=== PATIENT | female | born 1955 | race African-American/Black ===

== ENCOUNTER 2018-02-22 11:58 | Inpatient (IN) | payer MEDICARE, MEDICAID ==
[~2018-02-22] VITALS: Ht 304.8 cm; Wt 80.4 kg
[2018-02-22] MEDS ORDERED: KETOROLAC 30MG/ML VIAL IV STA (12:36)
[2018-02-22] MEDS ORDERED: SODIUM CHLORIDE 0.9% 1,000 ML IV ONE (12:36)
[2018-02-22 14:12] LABS: MEAN CORPUSCULAR HEMOGLOBIN 24.4 pg (28.0-32.0); MEAN CORPUSCULAR VOLUME 73.7 fL (81.0-99.0); PLATELET 98 x1000/uL (130-400); RED BLOOD CELL COUNT 2.84 mill/uL (4.2-5.4); RED CELL DISTRIBUTION WIDTH 20.7 % (11.6-14.6)
[2018-02-22 14:17] LABS: CHLORIDE 108 mEq/L (98-107); HEMOGLOBIN. 6.9 g/dL (12.0-16.0)
[2018-02-22 14:18] LABS: HEMATOCRIT. 20.9 % (36.0-48.0)
[2018-02-22 14:20] LABS: INR 1.2; PROTHROMBIN TIME 11.6 sec (9.1-11.1)
[2018-02-22 14:51] LABS: PLATELET ESTIMATE DECREASED
[2018-02-22] MEDS ORDERED: IBUP-2029 PO (17:33)
[2018-02-22] MEDS ORDERED: HYDR-4001 MT (17:33)
[2018-02-22] MEDS ORDERED: FOLI-43 MT (17:33)
[2018-02-22 18:00] VITALS: BP_SYST 133; BP_DIAS 61; BP_DIAS 66
[2018-02-22] MEDS ORDERED: TEMAZEPAM 15MG CAPSULE PO PRN (19:30)
[2018-02-22] MEDS ORDERED: ONDANSETRON HCL 4MG/2ML INJ IV PRN (19:30)
[2018-02-22] MEDS ORDERED: DOCUSATE SODIUM 100MG CAPSULE PO PRN (19:30)
[2018-02-22] MEDS ORDERED: IPRATROPIUM/ALBUTEROL 0.5-3(2.5)MG/3ML NEB INH PRN (19:30)
[2018-02-22 20:00] VITALS: BP 136/67
[2018-02-22] MEDS: SODIUM CHLORIDE 0.9% 1,000 ML IV SCH (20:23)
[2018-02-22] MEDS: HYDROMORPHONE HCL/PF 2MG/ML CPJ IV PRN (20:23)
[2018-02-22] MEDS: PIPERACILLIN/TAZ 3.375G PREMIX 50 ML IV SCH (22:29)
[2018-02-23] VITALS: BP 127/71
[2018-02-23 04:00] VITALS: BP 140/78
[2018-02-23] MEDS: HYDROMORPHONE HCL/PF 2MG/ML CPJ IV PRN ×3 (04:39→17:13)
[2018-02-23] MEDS: SODIUM CHLORIDE 0.9% 1,000 ML IV SCH ×3 (04:45→17:34)
[2018-02-23] MEDS: PIPERACILLIN/TAZ 3.375G PREMIX 50 ML IV SCH ×3 (06:04→21:12)
[2018-02-23 07:01] LABS: BASOPHILS % 0.2 % (0.0-2.0); EOSINOPHILS % 0.1 % (0.0-5.0); LYMPHOCYTES % 17.3 % (20.0-50.0); MEAN CORPUSCULAR HEMOGLOBIN 24.1 pg (28.0-32.0); MEAN CORPUSCULAR VOLUME 73.4 fL (81.0-99.0); MONOCYTES % 3.4 % (2.0-8.0); RED BLOOD CELL COUNT 2.65 mill/uL (4.2-5.4); RED CELL DISTRIBUTION WIDTH 19.6 % (11.6-14.6)
[2018-02-23 07:08] LABS: CHLORIDE 112 mEq/L (98-107)
[2018-02-23 07:54] LABS: HEMOGLOBIN. 6.4 g/dL (12.0-16.0)
[2018-02-23 07:55] LABS: HEMATOCRIT. 19.5 % (36.0-48.0)
[2018-02-23 08:00] VITALS: BP 109/57
[2018-02-23] MEDS: FOLIC ACID 1MG TABLET PO SCH (09:04)
[2018-02-23 10:40] LABS: MEAN PLATELET VOLUME 9.7 fl (7.4-10.4); PLATELET 73 x1000/uL (130-400)
[2018-02-23 12:00] VITALS: BP 108/56
[2018-02-23 16:00] VITALS: BP 106/53
[2018-02-23 16:29] LABS: BG BASE EXCESS 0.5 mmol/L (-2.0-2.0); BG CARBOXYHEMOGLOBIN 2.2 % (0.5-1.5); BG DEOXYHEMOGLOBIN 3.5 % (0.0-5.0); BG FRACTION INSPIRED OXYGEN 21; BG HCO3 ACT 24.3 mmol/L (22.0-26.0); BG METHEMOGLOBIN 0.6 % (0.0-1.5); BG OXYGEN SATURATION 96.4 % (92.0-98.5); BG OXYHEMOGLOBIN 93.7 % (94.0-97.0); BG PCO2 34.8 mmHg (35.0-45.0); BG PH 7.462 (7.350-7.450); BG PO2 81.8 mmHg (75.0-100.0); BG SAMPLE SITE LEFT RADIAL; BG TOTAL HEMOGLOBIN 6.4 g/dL (12.0-18.0); BG VENT MODE ROOM AIR
[2018-02-23] MEDS: DOCUSATE SODIUM 100MG CAPSULE PO SCH (17:47)
[2018-02-23 20:00] VITALS: BP 121/71
[2018-02-23 21:44] LABS: TOTAL IRON BINDING CAPACITY 221 ug/dL (250-450)
[2018-02-23] MEDS ORDERED: DIPHENHYDRAMINE 50MG/ML VIAL IV NR (23:15)
[2018-02-23] MEDS: ACETAMINOPHEN 325MG TABLET PO PRN (23:17)
[2018-02-24] VITALS (12 sets, daily range): BP systolic 101–127; BP diastolic 43–67
[2018-02-24] MEDS: SODIUM CHLORIDE 0.9% 1,000 ML IV SCH ×4 (01:27→17:42)
[2018-02-24] MEDS: HYDROCODONE/ACETAMINOPHEN 5/325MG TABLET PO PRN (05:19)
[2018-02-24] MEDS: HYDROMORPHONE HCL/PF 2MG/ML CPJ IV PRN ×2 (05:30→12:53)
[2018-02-24] MEDS: PIPERACILLIN/TAZ 3.375G PREMIX 50 ML IV SCH ×3 (05:31→21:00)
[2018-02-24] MEDS: PANTOPRAZOLE 40MG DR TABLET PO SCH ×2 (07:03→12:54)
[2018-02-24] MEDS: FOLIC ACID 1MG TABLET PO SCH ×2 (09:00→12:54)
[2018-02-24] MEDS: DOCUSATE SODIUM 100MG CAPSULE PO SCH ×3 (09:00→17:48)
[2018-02-24 09:45] LABS: HEMATOCRIT 23.7 % (36.0-48.0); HEMOGLOBIN 7.8 g/dL (12.0-16.0); MEAN CORPUSCULAR HEMOGLOBIN 25.2 pg (28.0-32.0); MEAN CORPUSCULAR VOLUME 76.4 fL (81.0-99.0); RED BLOOD CELL COUNT 3.11 mill/uL (4.2-5.4); RED CELL DISTRIBUTION WIDTH 18.8 % (11.6-14.6)
[2018-02-24 10:11] LABS: CHLORIDE 110 mEq/L (98-107)
[2018-02-24 10:13] LABS: PLATELET 69 x1000/uL (130-400)
[2018-02-24 10:18] LABS: LDL CHOLESTEROL 74 mg/dL (5-100)
[2018-02-24 10:20] LABS: HDL CHOLESTEROL 53 mg/dL (40-59)
[2018-02-24] MEDS: ACETAMINOPHEN 325MG TABLET PO PRN (12:53)
[2018-02-24] MEDS ORDERED: POTASSIUM CHLORIDE 20MEQ TABLET SR PO NR (14:30)
[2018-02-25] VITALS (8 sets, daily range): BP systolic 90–115; BP diastolic 46–87
[2018-02-25] MEDS: SODIUM CHLORIDE 0.9% 1,000 ML IV SCH ×5 (00:40→20:34)
[2018-02-25] MEDS: HYDROCODONE/ACETAMINOPHEN 5/325MG TABLET PO PRN ×2 (00:51→10:20)
[2018-02-25 01:26] LABS: CLARITY URINE CLEAR (CLEAR); KETONES URINE NEGATIVE (NEGATIVE); LEUKOCYTE ESTERASE URINE NEGATIVE (NEGATIVE); NITRITE URINE NEGATIVE (NEGATIVE); OCCULT BLOOD URINE NEGATIVE (NEGATIVE); PROTEIN URINE TRACE (NEGATIVE); SPECIFIC GRAVITY URINE 1.015 (1.005-1.030)
[2018-02-25 01:28] LABS: COLOR URINE YELLOW (YELLOW)
[2018-02-25] MEDS: IPRATROPIUM/ALBUTEROL 0.5-3(2.5)MG/3ML NEB HHN SCH ×4 (01:46→21:39)
[2018-02-25] MEDS: ACETAMINOPHEN 325MG TABLET PO PRN (04:29)
[2018-02-25] MEDS: PIPERACILLIN/TAZ 3.375G PREMIX 50 ML IV SCH ×3 (05:00→20:43)
[2018-02-25] MEDS: PANTOPRAZOLE 40MG DR TABLET PO SCH (06:24)
[2018-02-25 08:23] LABS: CHLORIDE 108 mEq/L (98-107)
[2018-02-25] MEDS ORDERED: LIDOCAINE HCL 1% 20ML VIAL (Pyxis) INJ ONE (08:43)
[2018-02-25] MEDS: BUDESONIDE 0.5MG/2ML NEB HHN SCH ×2 (09:45→21:39)
[2018-02-25 09:51] LABS: HEMATOCRIT 27.3 % (36.0-48.0); HEMOGLOBIN 8.9 g/dL (12.0-16.0); MEAN CORPUSCULAR HEMOGLOBIN 25.1 pg (28.0-32.0); MEAN CORPUSCULAR VOLUME 76.7 fL (81.0-99.0); RED BLOOD CELL COUNT 3.56 mill/uL (4.2-5.4); RED CELL DISTRIBUTION WIDTH 18.6 % (11.6-14.6)
[2018-02-25 10:00] LABS: CHLORIDE 109 mEq/L (98-107)
[2018-02-25] MEDS: DOCUSATE SODIUM 100MG CAPSULE PO SCH ×2 (10:15→17:29)
[2018-02-25] MEDS: FOLIC ACID 1MG TABLET PO SCH (10:16)
[2018-02-25 10:25] LABS: PLATELET 74 x1000/uL (130-400)
[2018-02-25] MEDS: HYDROMORPHONE HCL/PF 2MG/ML CPJ IV PRN (13:25)
[2018-02-26] VITALS: BP 104/42
[2018-02-26] MEDS: HYDROCODONE/ACETAMINOPHEN 5/325MG TABLET PO PRN (00:24)
[2018-02-26] MEDS: IPRATROPIUM/ALBUTEROL 0.5-3(2.5)MG/3ML NEB HHN SCH ×3 (01:09→15:12)
[2018-02-26 04:00] VITALS: BP 106/63
[2018-02-26] MEDS: PIPERACILLIN/TAZ 3.375G PREMIX 50 ML IV SCH ×2 (05:22→13:00)
[2018-02-26] MEDS: SODIUM CHLORIDE 0.9% 1,000 ML IV SCH ×2 (05:23→09:15)
[2018-02-26] MEDS: PANTOPRAZOLE 40MG DR TABLET PO SCH (06:23)
[2018-02-26 07:18] LABS: HEMATOCRIT 23.2 % (36.0-48.0); HEMOGLOBIN 7.6 g/dL (12.0-16.0); MEAN CORPUSCULAR HEMOGLOBIN 24.9 pg (28.0-32.0); MEAN CORPUSCULAR VOLUME 76.5 fL (81.0-99.0); PLATELET 70 x1000/uL (130-400); RED BLOOD CELL COUNT 3.04 mill/uL (4.2-5.4); RED CELL DISTRIBUTION WIDTH 18.9 % (11.6-14.6)
[2018-02-26 07:40] LABS: CHLORIDE 109 mEq/L (98-107)
[2018-02-26 08:00] VITALS: BP 118/65
[2018-02-26] MEDS: BUDESONIDE 0.5MG/2ML NEB HHN SCH (08:20)
[2018-02-26] MEDS: FOLIC ACID 1MG TABLET PO SCH (09:15)
[2018-02-26] MEDS: DOCUSATE SODIUM 100MG CAPSULE PO SCH (09:15)
[2018-02-26] MEDS: HYDROMORPHONE HCL/PF 2MG/ML CPJ IV PRN (09:16)
[2018-02-26] MEDS ORDERED: POTASSIUM CHLORIDE 20MEQ TABLET SR PO SCH (10:30)
[2018-02-26 10:41] VITALS: BP_SYST 116; BP_SYST 118; BP_DIAS 54; BP_DIAS 65
[2018-02-26] MEDS ORDERED: LACTULOSE 20G/30ML UDC PO NR (11:00)
[2018-02-26 12:00] VITALS: BP 116/54
== END 2018-02-26 15:05 | disposition home or self-care (01) | DRG 812 ==
LOC: ER 11:58 → EDBEDREQ 15:08 → ENRESERV 15:26 → 8WST 17:59
PROVIDERS: ADMIT Ophthalmology; ATTEND Ophthalmology
PROC: 30233N1 Transfusion of Nonautologous Red Blood Cells into Peripheral Vein, Percutaneous Approach (ICD-10-PCS; principal; 2018-02-24)
PROC: 02H633Z Insertion of Infusion Device into Right Atrium, Percutaneous Approach (ICD-10-PCS; 2018-02-25)
PROC: B244ZZZ Ultrasonography of Right Heart (ICD-10-PCS; 2018-02-25)
DX: D57.00 Hb-SS disease with crisis, unspecified (principal); D68.59 Other primary thrombophilia; J45.901 Unspecified asthma with (acute) exacerbation; I11.9 Hypertensive heart disease without heart failure; M79.7 Fibromyalgia; E86.0 Dehydration; D69.6 Thrombocytopenia, unspecified; R16.2 Hepatomegaly with splenomegaly, not elsewhere classified; K80.20 Calculus of gallbladder without cholecystitis without obstruction; Z88.5 Allergy status to narcotic agent; Z79.899 Other long term (current) drug therapy
CPT/HCPCS: 36415; 36569; 36600; 71045; 74018; 76700; 76937; 78580; 80048; 80061; 82270; 82375; 82805; 83036; 83540; 83550; 84145; 84439; 84443; 84484; 85027; 85044; 85379; 86850; 86900; 86920; 93005; 93306; 93970; 94640; 96361; 96374; 97162; 97535; 99285; C1725; C1893; J1170; J1200; J1885; J2543; J3490; J7030; J7620; J7626; P9016